=== PATIENT | female | born 1965 | race Asian ===

== ENCOUNTER 2019-10-25 16:39 | Emergency (ER) | payer OTHER, SELFPAY ==
[2019-10-25 17:10] VITALS: BP 113/68; PULSE 86; RESP 18; TEMP 36.9; O2SAT 98; BMI 26.9
--- NOTE | 2019-10-25 18:07 | DI.RAD.S_ITS ---
PROCEDURE: XR THORACIC SPINE 3V INDICATIONS: mid back and low back pain, fell backward TECHNIQUE: 3 views of the thoracic spine were acquired. COMPARISON: None. FINDINGS: Bones: No fractures or dislocations. No suspicious bony lesions. 12 pairs of ribs are noted, and appear intact where visualized. Mild degenerative endplate changes in mid to lower thoracic spine is seen. Soft tissues: No paravertebral stripe thickening. IMPRESSION: No gross acute thoracic spine compression fracture or spondylolisthesis. 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 Dictated by: Ricardo Velásquez M.D. on 10/25/2019 at 18:36 Approved by: Ricardo Velásquez M.D. on 10/25/2019 at 18:37
--- NOTE | 2019-10-25 18:07 | DI.RAD.S_ITS ---
PROCEDURE: XR LUMBAR SPINE 2-3V INDICATIONS: mid back and low back pain, fell backward TECHNIQUE: 3 views of the lumbar spine were acquired. COMPARISON: None. FINDINGS: Bones: 5 [id number] vertebrae are present. There is normal bony alignment. No vertebral body compression fractures. No suspicious bony lesions. Soft tissues: Overlying bowel gas pattern is normal. No suspicious soft tissue calcifications. IMPRESSION: No acute compression fracture or spondylolisthesis of lumbar spine. Dictated by: Ricardo Velásquez M.D. on 10/25/2019 at 18:35 Approved by: Ricardo Velásquez M.D. on 10/25/2019 at 18:36
[2019-10-25] MEDS: IBUPROFEN 400 MG TABLET 800 MG PO (18:35)
[2019-10-25] MEDS: ACETAMINOPHEN 325 MG TABLET 650 MG PO (18:36)
--- NOTE | 2019-10-25 18:40 | ED.BACK ---
HPI - Back Pain/Injury <Dick Gutiérrez [facility] - Last Filed: 10/25/19 19:23> General Chief Complaint: Back Pain/Injury Stated Complaint: GLF, lower back pain Time Seen by Provider: 10/25/19 17:53 Source: patient Mode of arrival: Ambulatory Limitations: no limitations History of Present Illness HPI Narrative: This is a 54-year-old female, nonsmoker, who presents to ED with spouse with chief complain of bilateral but worse in right mid level back and low back pain. Patient reports she fell and landed on left side buttock while she was trying to she on left foot and standing on one, right foot this morning. Patient denies injuring her head, losing consciousness, pain in her hips, knees, ankle or foot. Patient denies previous injury to back. Patient denies numbness, urinary/stool incontinence, hematuria after the fall, or decrease sensation in her groin areas. Patient is ambulatory but reports pain increases with bearing weight on right-sided leg, rotating her upper body to side to side and changing position from sitting to standing or standing to sitting and prefers to stand during exam. Related Data Previous Rx's Medication Instructions Recorded cyclobenzaprine 5 - 10 mg PO BEDTIME #7 tab 10/25/19 lidocaine 2 patch TOP Q24H #30 each 10/25/19 Allergies Allergy/AdvReac Type Severity Reaction Status Date / Time Penicillins Allergy Rash Verified 10/25/19 17:24 Review of Systems <Dick Gutiérrez [facility] - Last Filed: 10/25/19 19:23> Review of Systems Narrative: General: Denies fever, chills, fatigue, malaise, sweats. HEENT: Denies sinus pain, ear pain, sore throat, difficulty swallowing, dizziness. Respiratory: Denies dyspnea, cough, wheezing, hemoptysis, sputum. Cardiovascular: Denies chest pain, palpitations, orthopnea, edema. Gastrointestinal: Denies nausea, vomiting, abdominal pain, diarrhea, constipation, melena. : Denies dysuria, frequency, incontinence, hematuria, urinary retention. Musculoskeletal: HPI Skin: Denies rash, skin lesions, or other. Neurologic: Denies weakness, headache, numbness, change in speech, confusion, seizures, incoordination. Psychiatric: No concerning psychosocial issues. 12-point review of systems is negative except for those stated above. Patient History <KATHERINE Escobar - Last Filed: 10/25/19 19:23> Medical History History of lipoma (Acute) Migraine headache (Acute) Surgical History History of (Acute) Social History Smoking Status: Never smoker Smoking Status: Never smoker alcohol intake frequency: holidays/special occasions only Substance Use Type: marijuana Exam <KATHERINE Escobar - Last Filed: 10/25/19 19:23> Narrative Exam Narrative: General appearance: well developed, well nourished, in no acute distress. Head: normocephalic, atraumatic, no scalp lesions, non-tender. ENT: Bilateral auditory canals and tympanic membranes clear. Hearing grossly intact. Nose without bleeding, purulent discharge, septal hematoma or deviation. Turbinate without erythema or swelling. Facial sinuses nontender to palpate. Mucous membrane moist, no mucosal lesion. Throat without erythema, tonsillar hypertrophy or exudate. Uvula in midline, airway patent. Neck/Thyroid: neck supple, full range of motion, no visible masses or meningeal signs. No JVD, non-tender without lymphadenopathy. Skin: no suspicious rashes, lesions over visible areas. Warm and dry and appropriate color for ethnicity. Heart: no clubbing, no cyanosis, no edema. S1 and S2 normal. RRR w/o murmurs, clicks, or bruits. Lungs: Breathing even and unlabored. No stridor. No accessory muscles used. Able to speak in full sentences. Chest: normal shape and expansion. Abdomen: non-obese, non-distended. Neurologic: alert and oriented. Cognitive exam, [employer] and PNS grossly intact on informal exam. Psych: good eye contact, normal affect. Initial Vital Signs Initial Vital Signs: Vital Signs Temperature 98.5 F 10/25/19 17:10 Pulse Rate 86 10/25/19 17:10 Respiratory Rate 18 10/25/19 17:10 Blood Pressure 113/68 10/25/19 17:10 Pulse Oximetry 98 10/25/19 17:10 Back/Spine/Pelvis Back: normal to inspection and back tenderness Thoracic/Lumbar Spine: thoracic and lumbar spine normal to inspection, bend over test abnormal, pain with thoraco-lumbar ROM, paraspinal tenderness (right worse than left), thoraco-lumbar ROM limited, thoracic spinal tenderness and lumbar spinal tenderness Sacroiliac Joints: nontender and No pain elicited by compression of iliac crest maneuver Sacrum: no swelling and no tenderness <Dave Davenport DO - Last Filed: 10/26/19 02:48> Initial Vital Signs Initial Vital Signs: Vital Signs Temperature 98.5 F 10/25/19 17:10 Pulse Rate 86 10/25/19 17:10 Respiratory Rate 18 10/25/19 17:10 Blood Pressure 113/68 10/25/19 17:10 Pulse Oximetry 98 10/25/19 17:10 Scores <KATHERINE Escobar - Last Filed: 10/25/19 19:23> GCS Osvaldo coma scale eye opening: Spontaneous Osvaldo coma scale verbal response: Orientated [place] coma scale motor response: Obey commands [place] coma scale total score: 15 Course <KATHERINE Escobar - Last Filed: 10/25/19 19:23> Orders Ordered: ED Orders 10/25/19 18:07 XR lumbar spine 2-3V Stat XR thoracic spine 3V Stat Discontinued Medications Acetaminophen (Tylenol) 650 mg PO NOW ONE Stop: 10/25/19 18:09 Last Admin: 10/25/19 18:36 Dose: 650 mg Documented by: GLORIA Cyclobenzaprine HCl (Flexeril 10 Mg Prepack) 1 bottle [facility] ONE Stop: 10/25/19 18:54 Last Admin: 10/25/19 19:11 Dose: 1 bottle Documented by: ALEXANDER Ibuprofen (Advil) 800 mg PO NOW ONE Stop: 10/25/19 18:09 Last Admin: 10/25/19 18:35 Dose: 800 mg Documented by: GLORIA Lidocaine (Lidoderm) 1 each TOP NOW ONE Stop: 10/25/19 18:53 Last Admin: 10/25/19 19:11 Dose: 1 each Documented by: ALEXANDER Vital Signs Vital signs: Vital Signs - 8 hr 10/25/19 19:25 Pulse Rate 82 Respiratory Rate 19 Blood Pressure 112/70 Pulse Oximetry 98 <Dave Davenport DO - Last Filed: 10/26/19 02:48> Orders Ordered: ED Orders 10/25/19 18:07 XR lumbar spine 2-3V Stat XR thoracic spine 3V Stat Discontinued Medications Acetaminophen (Tylenol) 650 mg PO NOW ONE Stop: 10/25/19 18:09 Last Admin: 10/25/19 18:36 Dose: 650 mg Documented by: GLORIA Cyclobenzaprine HCl (Flexeril 10 Mg Prepack) 1 bottle [facility] ONE Stop: 10/25/19 18:54 Last Admin: 10/25/19 19:11 Dose: 1 bottle Documented by: ALEXANDER Ibuprofen (Advil) 800 mg PO NOW ONE Stop: 10/25/19 18:09 Last Admin: 10/25/19 18:35 Dose: 800 mg Documented by: GLORIA Lidocaine (Lidoderm) 1 each TOP NOW ONE Stop: 10/25/19 18:53 Last Admin: 10/25/19 19:11 Dose: 1 each Documented by: ALEXANDER Vital Signs Vital signs: Vital Signs - 8 hr 10/25/19 19:25 Pulse Rate 82 Respiratory Rate 19 Blood Pressure 112/70 Pulse Oximetry 98 MDM - Back Pain/Injury <KATHERINE Escobar - Last Filed: 10/25/19 19:23> Differential Diagnosis Differential diagnosis: Likely thoracic back pain and other (Lumbar back pain, contusion to back) Medical Records Attestation: I reviewed the patient's medical records. Imaging Data XR-Lumbar: Radiologist's Impression: [address] [address] XRay Report Signed Patient: Henny Lira RMR#: [id number] : 1965Acct:[id number] Age/Sex: 54 / FDate of Service: 10/25/19 Loc: ED Accession Number: [id number] Procedure: XR lumbar spine 2-3V Ordering Provider: Dick Gutiérrez PROCEDURE: XR LUMBAR SPINE 2-3V INDICATIONS: mid back and low back pain, fell backward TECHNIQUE: 3 views of the lumbar spine were acquired. COMPARISON: None. FINDINGS: Bones: 5 [id number] vertebrae are present. There is normal bony alignment. No vertebral body compression fractures. No suspicious bony lesions. Soft tissues: Overlying bowel gas pattern is normal. No suspicious soft tissue calcifications. IMPRESSION: No acute compression fracture or spondylolisthesis of lumbar spine. Dictated by: Ricardo Velásquez M.D. on 10/25/2019 at 18:35 Approved by: Ricardo Velásquez M.D. on 10/25/2019 at 18:36 XR-Thoracic: Radiologist's Impression: [address] [address] XRay Report Signed Patient: Henny Lira RMR#: [id number] : 1965Acct:[id number] Age/Sex: 54 / FDate of Service: 10/25/19 Loc: ED Accession Number: [id number] Procedure: XR thoracic spine 3V Ordering Provider: Dick Gutiérrez PROCEDURE: XR THORACIC SPINE 3V INDICATIONS: mid back and low back pain, fell backward TECHNIQUE: 3 views of the thoracic spine were acquired. COMPARISON: None. FINDINGS: Bones: No fractures or dislocations. No suspicious bony lesions. 12 pairs of ribs are noted, and appear intact where visualized. Mild degenerative endplate changes in mid to lower thoracic spine is seen. Soft tissues: No paravertebral stripe thickening. IMPRESSION: No gross acute thoracic spine compression fracture or spondylolisthesis. 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 Dictated by: Ricardo Velásquez M.D. on 10/25/2019 at 18:36 Approved by: Ricardo Velásquez M.D. on 10/25/2019 at 18:37 MDM Narrative Medical decision making narrative: This is a 54-year-old female who presents to ED with mid to low back pain with intact sensation, motor function in lower extremities after she fell backwards and landed on left buttock. Patient report back pain in mid to low is worse on the right side. Patient is ambulatory in stable gait at this time. Lumbar and thoracic x-rays do not show acute findings in lumbar or thoracic regions. Patient denies neurological deficit, incontinence for bladder or stools. Patient was medicated with Tylenol and Motrin initially and additional medication lidocaine patch and Flexeril prepack has been provided for pain management. Patient discharged to home with additional dose of Flexeril and lidocaine patch and advised to follow-up with PCP if pain persists. Return precautions were discussed with the patient and work off note for 2 days provided. Discharge Plan Departure Patient Disposition: Home Clinical Impression: Back pain Qualifiers: Back pain location: back pain in unspecified location Chronicity: acute Back pain laterality: bilateral Qualified Code(s): M54.9 - Dorsalgia, unspecified Discharge Date/Time: 10/25/19 19:25 Instructions: DI for Back Strain or Sprain Activity Restrictions/Additional Instructions: You have been diagnosed with [back pain/strain from the fall. X-ray tests on lumbar and thoracic results does not show acute findings such as fractures. There is mild degenerative disc disease in mid to low thoracic spine. Tylenol and ibuprofen while in ED along muscle relaxant Flexeril and lidocaine patch.]. What to do: *Take your medications as directed. You were discharged to home with prepack of Flexeril and prescription for lidocaine patch and additional Flexeril. You can take [id number] Tylenol and or Motrin as needed for discomfort. Tylenol 650-1000 mg up to 4 times a day as needed for pain. Ibuprofen 400 mg to 600 mg 3 to 4 times a day as needed with food for discomfort. Lidocaine patch stays on for 12 hours and off for 12 hours. Flexeril is for muscle relaxant and this may cause drowsiness so please do not drive, drink alcohol or operate heavy equipments. Your given 2 days off for work notes. *Follow up with your primary care provider in 2-3 days, call for an appointment. Let them know you were seen in the ED and that we asked you to be seen in follow up. *Return to ED if you have any new, worsening, or concerning symptoms, such as [chest pain, breathing difficulty, unable to tolerate fluids, incontinence of bladder stool, numbness to her groin, fever, hematuria, weakness/numbness to lower extremities or any acute concerns]. Prescriptions: New lidocaine 5 % adhesive patch,medicated 2 patch TOP Q24H Qty: 30 RF: 0 cyclobenzaprine 10 mg tablet 5 - 10 mg PO BEDTIME Qty: 7 RF: 0 Referrals: [facility] [Outside] Stand Alone Forms: Work Release Note
[2019-10-25] MEDS: CYCLOBENZAPRINE 10 MG PREPACK 1 BOTTLE MISC (19:11)
[2019-10-25] MEDS: LIDOCAINE PATCH 1 EACH ADH..PATCH TOP (19:11)
[2019-10-25 19:25] VITALS: BP 112/70; PULSE 82; RESP 19; O2SAT 98
== END 2019-10-25 19:25 | disposition home or self-care (01) ==
PROVIDERS: Emergency Provider Nurse Practitioner Family
DX: M54.9 Dorsalgia, unspecified (principal); W19.XXXA Unspecified fall, initial encounter
CPT/HCPCS: 72072; 72100; 99283; 99284

== ENCOUNTER → 2021-10-05 09:51 | Outpatient (CLI) | payer OTHER, SELFPAY ==
--- NOTE | 2021-10-05 10:16 | DI.MG.S_ITS ---
Patient Name: JOSE E PACE date: 1965 Sex: F Attending Physician: Marcio Indications: Date: 10/05/2021 09:55 At the request of: SHANIQUE OCONNOR Procedure: MM diagnostic mammo BI BILATERAL DIGITAL DIAGNOSTIC MAMMOGRAM 3D/2D: 10/05/2021 CLINICAL: Right breast pain. Comparison is made to exams dated: 04/13/2019 mammogram and 12/26/2017 mammogram - [facility]. There are scattered fibroglandular elements in both breasts. No significant masses, calcifications, or other findings are seen in either breast. IMPRESSION: NEGATIVE There is no abnormality seen in the right breast to correspond with the diffuse pain in the upper outer quadrant, however, clinical followup is recommended. There is no mammographic evidence of malignancy. A 1 year screening mammogram is recommended. This exam was interpreted at Station ID: [id number]. NOTE: For mammograms, a report in lay terms will be sent to the patient. Approximately 15% of breast malignancies will not be visualized mammographically. In the management of a palpable breast mass, a negative mammogram must not discourage biopsy of a clinically suspicious lesion. Electronically Signed By: Roge Mensah M.D. ddtata/:10/05/2021 10:38:14
== END ==
PROVIDERS: PCP Family Medicine; Referring Provider Family Medicine; Visit Provider Family Medicine
DX: N64.4 Mastodynia (principal)
CPT/HCPCS: 77066; G0279

== ENCOUNTER 2022-12-16 14:55 | Emergency (ER) | payer OTHER, SELFPAY ==
[2022-12-16 15:06] VITALS: BP 129/78; PULSE 82; RESP 16; TEMP 36.4; O2SAT 95; BMI 29.2
--- NOTE | 2022-12-16 15:18 | ED.EAR ---
HPI - Ear Problem <Tariq Yeager PA-C - Last Filed: 12/16/22 18:24> General Chief complaint: Ear Stated complaint: rt ear/neck pain and swelling Time Seen by Provider: 12/16/22 15:17 Source: patient Mode of arrival: Ambulatory History of Present Illness HPI Narrative: This is a 57-year-old female presents emergency department due to right ear pain for the last couple of days. She states that the pain radiates down into her right neck as well. She reports some tactile fevers. Denies any shortness of breath, chest pain, or any other concerning signs or symptoms. Denies any discharge from the ear. Related Data Previous Rx's Medication Instructions Recorded cyclobenzaprine 10 mg tablet 5 - 10 mg PO BEDTIME #7 tabs 10/25/19 lidocaine 5 % topical patch 2 patch topical Q24H #30 ea 10/25/19 cefdinir 300 mg capsule 300 mg PO BID #14 caps 12/16/22 pseudoephedrine HCl 30 mg tablet 60 mg PO Q4-6H PRN nasal 12/16/22 (Sudafed) congestion #20 tabs Allergies Allergy/AdvReac Type Severity Reaction Status Date / Time Penicillins Allergy Rash Verified 10/25/19 17:24 Review of Systems <BRYSON Hale Last Filed: 12/16/22 18:24> Review of Systems Narrative: GENERAL: Denies chills, fatigue, malaise, fever, sweats. HEENT: Reports right ear pain, denies sore throat, difficulty swallowing, dizziness. RESPIRATORY: Denies dyspnea, cough, wheezing, hemoptysis, sputum. CARDIOVASCULAR: Denies chest pain, palpitations, orthopnea, edema, GASTROINTESTINAL: Denies nausea, vomiting, abdominal pain, diarrhea, constipation, melena. : Denies dysuria, frequency, incontinence, hematuria, urinary retention. MUSCULOSKELETAL: denies weakness, joint pain, or bony pain SKIN: Denies rash, skin lesions, or other NEUROLOGIC: Denies weakness, headache, numbness, change in speech, confusion, seizures, incoordination. PSYCHIATRIC: No concerning psychosocial issues. 12 point review of systems is negative except for those stated above Patient History <BRYSON Hale Last Filed: 12/16/22 18:24> Medical History (Updated 12/16/22 @ 15:42 by Tariq Yeager PA-C) History of lipoma Migraine headache Surgical History History of Social History Smoking Status: Never smoker Smoking Status: Never smoker alcohol intake frequency: holidays/special occasions only Substance Use Type: marijuana Exam <Tariq Yeager PA-C - Last Filed: 12/16/22 18:24> Narrative Exam Narrative: GENERAL: Well-developed patient, in mild distress. HEAD: Atraumatic. Normocephalic. EYES: Pupils equal round and reactive. Extraocular motions intact. No scleral icterus. No injection or drainage. ENT: Right TM appears erythematous and edematous. Left TM bulging but dull. No lymphadenopathy or tenderness to palpation to the anterior cervical lymph nodes. Throat without erythema, tonsillar hypertrophy or exudate. Airway patent. NECK: Trachea midline. Non tender CARDIOVASCULAR: Regular rate and rhythm without murmurs, gallops, or rubs. RESPIRATORY: Clear to auscultation. Breath sounds equal bilaterally. No wheezes, rales, or rhonchi. GASTROINTESTINAL: Abdomen soft, non-tender, nondistended. EXTREMITIES: No edema or joint tenderness. BACK: Nontender without deformity or crepitance. No flank tenderness. NEURO: AOx3. SKIN: No rash or erythema of visible areas Initial Vital Signs Initial Vital Signs: Vital Signs Temperature 97.5 F L 12/16/22 15:06 Pulse Rate 82 12/16/22 15:06 Respiratory Rate 16 12/16/22 15:06 Blood Pressure 129/78 12/16/22 15:06 Pulse Oximetry 95 12/16/22 15:06 Oxygen Delivery Method Room Air 12/16/22 15:06 <Destinee Koo DO - Last Filed: 12/17/22 07:13> Initial Vital Signs Initial Vital Signs: Vital Signs Temperature 97.5 F L 12/16/22 15:06 Pulse Rate 82 12/16/22 15:06 Respiratory Rate 16 12/16/22 15:06 Blood Pressure 129/78 12/16/22 15:06 Pulse Oximetry 95 12/16/22 15:06 Oxygen Delivery Method Room Air 12/16/22 15:06 Course <Tariq Yeager PA-C - Last Filed: 12/16/22 18:24> Vital Signs Vital signs: Vital Signs - 8 hr 12/16/22 15:06 12/16/22 15:51 Temperature 97.5 F L Pulse Rate 82 Respiratory Rate 16 Blood Pressure 129/78 126/76 Pulse Oximetry 95 Oxygen Delivery Method Room Air <Destinee Koo DO - Last Filed: 12/17/22 07:13> Vital Signs Vital signs: Vital Signs - 8 hr 12/16/22 15:06 12/16/22 15:51 Temperature 97.5 F L Pulse Rate 82 Respiratory Rate 16 Blood Pressure 129/78 126/76 Pulse Oximetry 95 Oxygen Delivery Method Room Air Medical Decision Making <Tariq Yeager PA-C - Last Filed: 12/16/22 18:24> MDM Narrative Medical decision making narrative: MDM * differential diagnosis includes but not limited to otitis media, otitis externa kind of perforated TM, mastoiditis, bacterial pharyngitis, peritonsillar abscess * Prior records reviewed: Patient has a history of lipomas and migraine headaches. Patient has not been here for similar complaints in the past. * My lab interpretation: None obtained * My imgaing interpretation: None obtained * Clinical Decision Rules/Scores evaluated: None * Independent discussions with: None ED Course: This is a 57-year-old female presents to the emergency department due to suspected otitis media based on exam. Will treat with oral antibiotics. Penicillin allergy. Patient also was presenting with some bulging to the TM bilaterally and and will also prescribe Sudafed. Shared Decision Making: Discussed plan with the patient who is comfortable with the plan. Social Considerations: None Disposition: Discharged home Discharge Plan Departure Patient Disposition: Home Clinical Impression: Otitis media Instructions: Middle Ear Infection Activity Restrictions/Additional Instructions: Thank you for coming to the [facility] Emergency Department today. It appears that you have an ear infection based on exam. Please take the oral antibiotics as prescribed. The Sudafed also help decrease the drainage in the ears which may release some of the pressure. Please continue using ibuprofen as needed for the pain. I sent the medications to [facility] in [place]. I hope you feel better soon. Prescriptions: New cefdinir 300 mg capsule 300 mg PO BID Qty: 14 0RF pseudoephedrine HCl [Sudafed] 30 mg tablet 60 mg PO Q4-6H PRN (Reason: nasal congestion) Qty: 20 0RF Rx Instructions: DNExceed 4 doses/24h No Action lidocaine 5 % adhesive patch,medicated 2 patch TOP Q24H Qty: 30 0RF Rx Instructions: leave on most painful area for up to 12 hrs cyclobenzaprine 10 mg tablet 5 - 10 mg PO BEDTIME Qty: 7 0RF Referrals: Sam Buckley MD [Primary Care Provider] - Stand Alone Forms: Patient Portal/API <Destinee Koo DO - Last Filed: 12/17/22 07:13> Cosign ED Attending Markature Attestation: I was immediately available in the department for consultation. Documentation has been reviewed.
--- NOTE | 2022-12-16 15:50 | PC.NURSE ---
Exam performed by provider, first time meeting pt was at time of discharge
[2022-12-16 15:51] VITALS: BP 126/76
== END 2022-12-16 15:51 | disposition home or self-care (01) ==
PROVIDERS: Emergency Provider Physician Assistant Medical; PCP Family Medicine
DX: H66.91 Otitis media, unspecified, right ear (principal); M54.2 Cervicalgia
CPT/HCPCS: 99281

== ENCOUNTER → 2024-11-06 11:39 | Outpatient (CLI) | payer OTHER, SELFPAY ==
--- NOTE | 2024-11-06 11:41 | DI.US.S_ITS ---
PROCEDURE: US EXTREMELY NONVASC UPPER RT INDICATIONS: HARD NODULE IN BETWEEN 2ND 3RD JOINT OF RT HAND TECHNIQUE: Real-time scanning was performed of the right hand, with image documentation. COMPARISON: None. FINDINGS: Focused ultrasound examination of dorsal right hand at patient's reported area of palpable lump shows a hypoechoic area within subcutaneous soft tissue measures 0.82 x 0.49 x 0.62 cm in size and show no internal vascularity. IMPRESSION: Nonvascular hypoechoic structure within subcutaneous soft tissue over dorsal aspect of right hand and is lateral to the 3rd digit extensor tendon measures 0.82 x 0.49 x 0.62 cm in size. Finding may represent tiny ganglion cyst versus other cystic neoplasm. Dictated by: Ricardo Velásquez M.D. on 11/06/2024 at 15:48 Approved by: Ricardo Velásquez M.D. on 11/06/2024 at 15:58
== END ==
LOC: US 11:40
PROVIDERS: PCP Family Medicine; Referring Provider Physician Assistant; Visit Provider Physician Assistant
DX: R22.31 Localized swelling, mass and lump, right upper limb (principal)
CPT/HCPCS: 76882

== ENCOUNTER 2024-11-20 09:49 | Day surgery (SDC) | payer OTHER, SELFPAY ==
--- NOTE | 2024-11-20 | PATH_ITS ---
[facility] Accession Number: [id number] No. of containers..03 Tissue . 01 Material submitted: . PART A: colon - SPLENIC FLEXURE POLYP PART B: rectum - RECTAL POLYP AT 25 CM PART C: rectum - RECTAL POLYP AT 15 CM . 01 Diagnosis: Part A: SPLENIC FLEXURE POLYP: Colonic mucosa with benign lymphoid aggregate. No neoplasm identified. . Part B: RECTAL POLYP AT 25 CM: Hyperplastic polyp. . Part C: RECTAL POLYP AT 15 CM: Colonic mucosa with benign lymphoid aggregate. No neoplasm identified. [facility] 11/24/2024 1202 Local . 01 Electronically signed: . Roge Fatima MD, Pathologist NPI- [id number] . 01 Gross description: . Part A: SPLENIC FLEXURE POLYP: Received in formalin are 2 fragment(s) of camacho, soft tissue measuring 0.2 x 0.2 x 0.1 cm to 0.3 x 0.3 x 0.2 cm submitted entirely in 1 cassette(s) . Part B: RECTAL POLYP AT 25 CM: Received in formalin is 1 fragment(s) of camacho, soft tissue measuring 0.2 x 0.2 x 0.1 cm submitted entirely in 1 cassette(s) . Part C: RECTAL POLYP AT 15 CM: Received in formalin is 1 fragment(s) of camacho, soft tissue measuring 0.3 x 0.3 x 0.2 cm submitted entirely in 1 cassette(s) /KARL 11/24/2024 1202 Local . 01 Pathologist provided ICD-10: K62.1, K63.89 . 01 CPT . 315823, 793764, [id number] Specimen Comment: A courtesy copy of this report has been sent to [facility] Pathology Performed at: [address] [address], [place], [place] [id number] MD Roge Fatima MD Phone: [phone]
[2024-11-20 10:07] VITALS: BP 132/79; PULSE 100; RESP 16; TEMP 36.1; O2SAT 97
[2024-11-20] MEDS: LACTATED RINGERS 1,000 ML 42 ML IV (10:22)
--- NOTE | 2024-11-20 10:37 | P.HP_ITS ---
History of Present Illness History of Present Illness Date Patient Seen: 11/20/24 Time Patient Seen: 10:37 Chief complaint: Colonoscopy Narrative: Patient here for screening colonoscopy for her age. She had a colonoscopy approximately 8-10 years ago that was normal but she does not remember the exact findings. Denies any family history, denies unanticipated weight loss, denies any blood red blood per rectum or hematochezia [facility] Medical History (Updated 12/31/22 @ 00:00 by ) History of lipoma Migraine headache Surgical History History of Social History Smoking Status: Never smoker alcohol intake: current Meds Home Medications and Allergies Home Medications Medication Instructions Recorded Confirmed Type lidocaine 5 % topical patch 2 patch topical Q24H #30 ea 10/25/19 11/20/24 Rx pseudoephedrine HCl 30 mg tablet 60 mg (2 x 30 mg) PO Q4-6H PRN 12/16/22 11/20/24 Rx (Sudafed) nasal congestion #20 tabs sodium,potassium,mag sulfates 17.5 See Rx Instructions PO .COMPLEX 10/30/24 Rx gram-3.13 gram-1.6 gram oral soln #354 mL (Suprep Bowel Prep Kit) conjugated estrogens 0.625 mg/gram vaginal 11/20/24 History vaginal cream (Premarin) diclofenac sodium 1 % topical gel topical 11/20/24 History Allergies Allergy/AdvReac Type Severity Reaction Status Date / Time naproxen Allergy ITCHING Verified 11/20/24 10:07 Penicillins Allergy Rash Verified 11/20/24 09:56 Review of Systems Review of Systems ROS: Yes All systems reviewed with the patient and are negative except as otherwise documented Exam Vital Signs (past 8 hours): - 11/20/24 10:07 Temperature 97.0 F L Pulse Rate 100 H Respiratory Rate 16 Blood Pressure 132/79 Pulse Oximetry 97 Oxygen Delivery Method Room Air Oxygen Delivery Method Room Air Const General: cooperative and healthy appearing Nutritional Appearance: average body habitus HENMT Head: normal to inspection Eyes General: appearance normal, both eyes and all related structures Neck Neck: normal visual inspection Chest Chest: normal inspection of the chest Resp Effort & Inspection: normal respiratory effort Cardio Rate: regular rate Rhythm: regular rhythm GI Inspection: normal to inspection Palpation: soft Assessment & Plan Assessment & Plan narrative: Patient here for screening colonoscopy, questions answered and consent obtained, we will proceed with case Time-Based Coding :: [TOTAL MINUTES] spent with patient and on the chart (including review of chart, obtaining history, exam, reviewing outside data, placing orders, documenting exam and treatment plan, and counseling patient) on [DATE]. [employer] Education Teaching Assistant Document charge(s): Yes
[2024-11-20 11:35] VITALS: BP 106/68; PULSE 96; RESP 18; TEMP 36.1; O2SAT 99
--- NOTE | 2024-11-20 11:36 | PM.OP.COLON ---
Operative Date/Time/Diagnoses Date of procedure: 11/20/24 Time of procedure: 11:36 Pre-op diagnosis: Screening colonoscopy for age Post-op diagnosis: same Procedure & Clinicians Study performed: Colonoscopy Same procedure as scheduled: Yes Indications: Screening colonoscopy Surgeon: Eric Silvestre Procedure Notes SCOAP/Timeout: Performed Procedure in detail: Patient seen in the preop area, H and P updated, positive fecal occult testing. Patient reported prep was adequate. Patient brought back to procedure room, time-out was performed verifying correct patient procedure. She was given sedation. External rectal exam was performed with no identified fissures, or external hemorrhoids significance. Some skin tags. Digital rectal exam performed with no masses or blood. Colonoscope placed, colon insufflated, adequacy of prep was adequate but not perfect the scope was passed without difficulty to the cecum, verified by identification of the tinea and palpation The scope was withdrawn with circumferential view of the colon, areas occluded by bowel prep or cleaned as much as possible. Tiny sessile polyps were identified at the splenic flexure, a rectal polyp at 25 cm, and rectal polyp at 15 cm. These were all biopsied and sent for pathology There was colonic diverticulum noted throughout the colon to a minimal degree No other lesions were identified upon removal of the scope. The scope was retroflexed in the rectum and no internal hemorrhoids were identified air was withdrawn from the colon, scope was withdrawn, and the patient was brought to the recovery area in stable condition. Scope withdrawal time: 23 Findings: divertiulosis and polyp(s) (Splenic flexure, 25 cm, and 15 cm polyps, sent for pathology) Specimen(s): other (As above) Complications: none Impression: Colonic diverticulosis, several small sessile polyps Post-procedure Recommendations: Colonoscopy in 3 years Plan for aftercare: PACU Follow up: as needed Disposition: PACU
[2024-11-20 11:37] VITALS: BP 113/77; PULSE 81; RESP 13; O2SAT 99
[2024-11-20 11:42] VITALS: BP 119/79; PULSE 79; RESP 17; TEMP 36.2; O2SAT 99
== END 2024-11-20 12:09 | disposition home or self-care (01) ==
PROVIDERS: PCP Physician Assistant
DX: Z12.11 Encounter for screening for malignant neoplasm of colon (principal); R19.5 Other fecal abnormalities; K57.30 Diverticulosis of large intestine without perforation or abscess without bleeding; K62.1 Rectal polyp; K63.5 Polyp of colon
CPT/HCPCS: 45380; J2704